=== PATIENT | female | born 1995 | race Caucasian/White ===

== ENCOUNTER 2019-12-02 14:20 | Emergency (ER) | payer OTHER ==
[~2019-12-02] VITALS: Ht 154.9 cm; Wt 64.0 kg
[2019-12-02 14:25] VITALS: BP 122/75
[2019-12-02] MEDS ORDERED: CLONAZEPAM 0.5MG TABLET PO ONE (15:15)
== END 2019-12-02 16:09 | disposition home or self-care (01) ==
LOC: ER 14:46
DX: F41.9 Anxiety disorder, unspecified (principal)
CPT/HCPCS: 99283